=== PATIENT | male | born 1955 | race Caucasian/White ===

== ENCOUNTER 2024-11-12 12:36 | Outpatient (CLI) | payer MEDICARE, BC ==
[2024-11-12] MEDS ORDERED: GADOTERATE MEGLUMINE 7.5 MMOL/15 ML VIAL IV ONE (14:42)
--- NOTE | 2024-11-12 15:42 | RADIOLOGY REPORT ---
CLINICAL INFORMATION: 69 years old, Male; LOW BACK PAIN-POST SURGERY L2-L4 LAMINECTOMY. TECHNIQUE: Multisequence multiplanar MRI images of the lumbar spine were obtained 2 and after the un eventful administration of 10 mL clariscan contrast. COMPARISON: None INTERPRETATION: Motion artifact limits evaluation. Postsurgical changes of laminectomy at L3. Right-s ided transpedicular screws at L5 and S1. Grade 1 anterolisthesis of L5 on S1 with chronic pars defect s at L5. Minimal retrolisthesis of L2 on L3 and L3 on L4. Vertebral body heights are maintained. T here is prominent marrow edema with t2/stir hyperintense signal T1 hypointense signal throughout the L2, L3, and L4 vertebral bodies with associated postcontrast enhancement. T2/stir hyperintense signal in the L2-L3 and L3-L4 disc spaces with associated enhancement, suspected discitis/osteomyelitis. The conus medullaris is appropriate in signal at the L1 level. There is moderate to marked fatty at rophy of the paraspinal musculature in the lumbosacral spine. There is edema and enhancement in the p soas muscles adjacent to the L2 through L4 vertebral bodies suspected infection/myositis given the ad jacent findings in the vertebral bodies and discs. More distally in the left psoas muscle at the L5- S1 level, there is a complex collection measuring up to 3.6 x 1.7 cm, most likely a hematoma, without significant adjacent enhancement to suggest abscess. There is edema and enhancement involving parasp inal musculature, most prominent at the L3 level including adjacent to the laminectomy defect extendi ng cephalad to the L1-L2 level. Otherwise, no peripherally enhancing fluid collection identified in t he paraspinal soft tissues suggest abscess. No findings are seen to suggest epidural abscess. L1-L2: Disc desiccation with moderate disc space narrowing and diffuse disc bulge. Moderate spinal canal stenosis. Facet hypertrophy and encroachment of the neural foramina by the disc bulge contribut es to moderate to severe spinal canal stenosis. L2-L3: T2 hyperintense signal and enhancement in the disc consistent with discitis in the appropriat e clinical setting. 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 Facet hypertrophy with moderate to severe bilateral neural foraminal stenoses. L3-L4: T2 hyperintense signal and enhancement in the disc suggesting discitis. There is congenital s amor canal narrowing with decompressive laminectomy. Prominent enhancement along the laminectomy def ect, may be due to infectious etiology and/or ridges Jewel sequelae of postsurgical changes. There is a tract extending from the spinal canal to the laminectomy defects site seen on the postcontrast axi al images not well correlated on Additional imaging sequences. No definite fluid is seen in this loc ation on the images obtained, may be residual sequelae of postsurgical changes. L4-L5: Disc desiccation. No significant spinal canal stenosis. Facet hypertrophy with moderate bilat eral neural foraminal stenoses. L5-S1: Uncovering of the disc due to anterolisthesis. Mild disc bulge without significant spinal can al stenosis. Facet hypertrophy and anterolisthesis contributes to moderate to severe bilateral neural foraminal stenoses. Chronic bilateral pars defects at L5. IMPRESSION: 1. Findings at the L2 through L4 levels suspicious for discitis/osteomyelitis as described above. 2. Edema and enhancement of the paraspinal musculature near the L2 through L4 levels, suspected myosi tis. There is enhancement of the L3 laminectomy site, may be due to residual postoperative changes a nd/or infection. There is a nonenhancing tract the L3 level on the postcontrast images extending from the spinal canal to the laminectomy site, not correlated on additional imaging sequences, with no de finite fluid demonstrated in this location to suggest abscess. May be sequelae of the postsurgical ch anges. 3. Complex fluid collection in the left psoas muscle of the L5-S1 level, appears to be due to hematom a rather than abscess, without significant adjacent enhancement. 4. Degenerative disc disease and facet disease in the lumbar spine as detailed above.Postsurgical 5. Postoperative changes in the lumbar spine as detailed above. Critical findings Critical Result: Discitis/osteomyelitis. Findings reported to Sandra, the medical clerical assistant for Dr. Cavanaugh at 11/12/2024 05:38 PM CDT, and acknowledged receipt and understanding of the findings and will report the findings to Dr. Cavanaugh. Dr Jacqueline Diaz also provided a phone number to be reached by Dr. Nieto if needed. ..
== END 2024-11-12 23:59 | disposition home or self-care (01) ==
LOC: MRI 12:36
PROVIDERS: ATTEND Neurological Surgery
DX: M51.17 Intervertebral disc disorders with radiculopathy, lumbosacral region (principal); M54.50 Low back pain, unspecified; M47.26 Other spondylosis with radiculopathy, lumbar region; M96.1 Postlaminectomy syndrome, not elsewhere classified; G95.19 Other vascular myelopathies; M48.07 Spinal stenosis, lumbosacral region
CPT/HCPCS: 72158; A9575